=== PATIENT | male | born 1945 | race Caucasian/White ===

== ENCOUNTER 2021-04-23 14:47 | Emergency (ER) | payer OTHER ==
--- NOTE | 2021-04-23 17:29 | EDM.PDOC ---
ED HPI GENERAL MEDICAL PROBLEM - General Chief Complaint: Respiratory Problem Stated Complaint: cough / elbow injury Time Seen by Provider: 04/23/21 17:27 Source of Information: Reports: Patient History Limitations: Reports: No Limitations - History of Present Illness INITIAL COMMENTS - FREE TEXT/NARRATIVE: HISTORY AND PHYSICAL: History of present illness: Patient is a 76-year-old male who presents to the emergency room with complaints of productive cough and nasal drainage over the past few days. Patient states he has been diagnosed with COPD but does not take any medications for his lungs. For the past 1 month he has right elbow pain and right shoulder pain after hitting it on an end table. Patient denies any fever, chills, headache, change in vision, syncope or near syncope. Denies any chest pain, back pain, shortness of breath. Denies any abdominal pain, nausea, vomiting, diarrhea, constipation or dysuria. Has not noted any blood in urine or stool. Patient has been eating and drinking appropriately. Review of systems: As per history of present illness and below otherwise all systems reviewed and negative. Past medical history: As per history of present illness and as reviewed below otherwise noncontributory. Surgical history: As per history of present illness and as reviewed below otherwise noncontributory. Social history: See social history for further information Family history: As per history of present illness and as reviewed below otherwise noncontributory. Physical exam: General: Well developed and well nourished. Alert and orientated x 3. Nontoxic in appearance and in no acute distress. Vital signs are stable and have been reviewed by me. Nursing notes were reviewed. HEENT: Atraumatic, normocephalic, pupils equal and reactive bilaterally, negative for conjunctival pallor or scleral icterus, mucous membranes moist, TMs normal bilaterally, throat clear, neck supple, nontender, trachea midline. No drooling or trismus noted. No meningeal signs. No hot potato voice noted. Lungs: Clear to auscultation bilaterally. No wheezes, rales, or rhonchi. Chest nontender. Normal work of breathing, no accessory muscles used. Heart: S1S2, regular rate and rhythm without overt murmur, gallops, or rubs. No JVD. No peripheral edema Abdomen: Soft, nondistended, nontender. Skin: Intact, warm, dry. No lesions or rashes noted. Hematologic: No petechiae or purpra. Mucosa appropriate color and normal nail bed color and refill. Extremities: Bursitis noted to the right elbow, mild tenderness with touch. No redness, warmth or concern for infection of the elbow. He moves all extremities per self without difficulty or deficits. Pinpoint tenderness at the right anterior shoulder girdle. Negative for cords or calf pain. Neurovascular unremarkable. Neuro: Awake, alert, oriented. Cranial nerves II through XII unremarkable. Cerebellum unremarkable. Motor and sensory unremarkable throughout. Exam nonfocal. Psychiatric: Mood and affect are appropriate. Normal thought process. Answering questions appropriately. Please note that the patient was seen and evaluated during the 2019 SARS-CoV-2 novel coronavirus pandemic period. Community viral transmission is ongoing at time of this encounter and the emergency department is operating under pandemic response procedures. Medical Decision Making: X-ray shows soft tissue swelling over the olecranon. No acute fracture or subluxation. Normal x-ray of shoulder. Patient does have a leukocytosis with normal chest x-ray reading. Due to symptoms, history of COPD and being a smoker I will put him on antibiotics and steroids. He was given strict return precautions. I have talked with the patient about today's findings, in addition to providing specific details for plan of care. Reassessment at the time of disposition demonstrates that the patient is in no acute distress. The patient is stable for discharge, counseling was provided and we discussed in great detail signs and symptoms that would prompt them to return to the Emergency Department. Medication, follow up and supportive care measures were reviewed and discussed. Voices understanding and is agreeable to plan of care. Denies any further questions or concerns at this time. Diagnostics: CBC, CMP, chest x-ray, right elbow, right shoulder Therapeutics: Sling, azithromycin, prednisone, albuterol Prescription: azithromycin, prednisone, albuterol Impression: Olecranon bursitis, right Acute bronchitis Plan: 1. You were evaluated today on an emergent basis. Your elbow shows an olecranon bursitis (inflammation of the bursa cavity). Rest, ice and elevate. Avoid trauma and excessive pressure or repetitive movements. NSAIDS such as Ibuprofen, Aleve or Naproxen work best. Please take the antibiotic and steriod for your respiratory infection. Use the inhaler 2 puffs every 4 hours as needed. 2. You can alternate Tylenol and ibuprofen as needed for pain and fever management. 3. We encourage you to follow up with your primary care provider and orthopedics in the next few days for re-evaluation and further care/management. 4. If your symptoms should worsen, new symptoms develop or any of the signs and symptoms we discussed should arise please return to the emergency room or call 911 (if needed). Definitive disposition and diagnosis as appropriate pending reevaluation and review of above. right elbow Pain Score (Numeric/FACES): 6 - Related Data Allergies Allergy/AdvReac Type Severity Reaction Status Date / Time No Known Allergies Allergy Verified 04/23/21 14:59 Home Meds: Home Meds Azithromycin [Zithromax] 1 dose PO DAILY 5 Days #6 tab 04/23/21 [Rx] predniSONE [Prednisone] 40 mg PO DAILY 4 Days #8 tablet 04/23/21 [Rx] Past Medical History - Past Health History Medical/Surgical History: Denies Medical/Surgical History - Past Surgical History GI Surgical History: Reports: Cholecystectomy Social & Family History - Family History Family Medical History: No Pertinent Family History - Tobacco Use Tobacco Use Status *Q: Current Every Day Tobacco User Years of Tobacco use: 50 Packs/Tins Daily: 1 - Recreational Drug Use Recreational Drug Use: No ED ROS GENERAL - Review of Systems Review Of Systems: Comprehensive ROS is negative, except as noted in HPI. ED EXAM, GENERAL - Physical Exam Exam: See Below (See dictation) Course - Vital Signs Last Recorded V/S: Last Vital Signs Temp 98.0 F 04/23/21 19:57 Pulse 67 04/23/21 19:57 Resp 18 04/23/21 19:57 BP 103/75 04/23/21 19:57 Pulse Ox 94 L 04/23/21 19:57 - Orders/Labs/Meds Orders: Active Orders 24 hr Category Date Time Status DME for Discharge [COMM] Stat Oth 04/23/21 19:21 Ordered Labs: Laboratory Tests 04/23/21 04/23/21 04/23/21 Range/Units 17:35 17:36 17:36 WBC 17.41 H (4.0-11.0) K/uL RBC 3.97 L (4.50-5.90) M/uL Hgb 13.3 (13.0-17.0) g/dL Hct 40.0 (38.0-50.0) % MCV 100.8 H (80.0-98.0) fL MCH 33.5 H (27.0-32.0) pg MCHC 33.3 (31.0-37.0) g/dL RDW Std Deviation 52.1 (28.0-62.0) fl RDW Coeff of Fredo 14 (11.0-15.0) % Plt Count 216 (150-400) K/uL MPV 10.40 (7.40-12.00) fL Neut % (Auto) 76.1 (48.0-80.0) % Lymph % (Auto) 13.5 L (16.0-40.0) % [place] % (Auto) 9.9 (0.0-15.0) % Eos % (Auto) 0.3 (0.0-7.0) % Baso % (Auto) 0.2 (0.0-1.5) % Neut # (Auto) 13.3 H (1.4-5.7) K/uL Lymph # (Auto) 2.4 (0.6-2.4) K/uL [place] # (Auto) 1.7 H (0.0-0.8) K/uL Eos # (Auto) 0.1 (0.0-0.7) K/uL Baso # (Auto) 0.0 (0.0-0.1) K/uL Nucleated RBC % 0.0 /100WBC Nucleated RBCs # 0 K/uL Sodium 142 (136-148) mmol/L Potassium 4.0 (3.5-5.1) mmol/L Chloride 106 (98-107) mmol/L Carbon Dioxide 25.1 (21.0-32.0) mmol/L BUN 26 H (7.0-18.0) mg/dL Creatinine 1.4 H (0.8-1.3) mg/dL Est Cr Clr Drug Dosing 41.97 mL/min Estimated GFR (MDRD) 49.3 ml/min Glucose 117 H (74-106) mg/dL Calcium 8.5 (8.5-10.1) mg/dL Total Bilirubin 1.0 (0.2-1.0) mg/dL AST 17 (15-37) IU/L ALT 19 (14-63) IU/L Alkaline Phosphatase 85 (46-116) U/L Total Protein 7.0 (6.4-8.2) g/dL Albumin 3.2 L (3.4-5.0) g/dL Globulin 3.8 (2.6-4.0) g/dL Albumin/Globulin Ratio 0.8 L (0.9-1.6) SARS-CoV-2 RNA (CONNIE) NEGATIVE (NEGATIVE) Meds: Medications Discontinued Medications Generic Name Dose Route Start Last Admin Trade Name Janie PRN Reason Stop Dose Admin Albuterol Confirm 04/23/21 19:35 04/23/21 19:46 Albuterol 8 Gm Inhaler Administered 04/23/21 19:36 1 pkg Dose Administration 8 gm INH .STK-MED ONE Azithromycin 500 mg 04/23/21 19:22 04/23/21 19:46 Azithromycin 250 Mg Tab PO 04/23/21 19:23 500 mg NOW STA Administration Prednisone 40 mg 04/23/21 19:30 04/23/21 19:45 Prednisone 10 Mg Tab PO 40 mg .Daily Taper LAONDRA Administration Departure - Departure Time of Disposition: 21:57 Disposition: Home, Self-Care 01 Clinical Impression: Bronchitis, Olecranon bursitis of right elbow - Discharge Information Prescriptions: predniSONE [Prednisone] 40 mg PO DAILY 4 Days #8 tablet Azithromycin [Zithromax] 1 dose PO DAILY 5 Days #6 tab Instructions: Acute Bronchitis, Adult, [id number] Referrals: PCP,None [Primary Care Provider] - Forms: ED Department Discharge Additional Instructions: The following information is given to patients seen in the emergency department who are being discharged to home. This information is to outline your options for follow-up care. We provide all patients seen in our emergency department with a follow-up referral. The need for follow-up, as well as the timing and circumstances, are variable depending upon the specifics of your emergency department visit. If you don't have a primary care physician on staff, we will provide you with a referral. We always advise you to contact your personal physician following an emergency department visit to inform them of the circumstance of the visit and for follow-up with them and/or the need for any referrals to a consulting specialist. The emergency department will also refer you to a specialist when appropriate. This referral assures that you have the opportunity for follow-up care with a specialist. All of these measure are taken in an effort to provide you with optimal care, which includes your follow-up. Under all circumstances we always encourage you to contact your private physician who remains a resource for coordinating your care. When calling for follow-up care, please make the office aware that this follow-up is from your recent emergency room visit. If for any reason you are refused follow-up, please contact the [facility] Emergency Department at and asked to speak to the emergency department charge nurse. [facility] [address] [place] [id number] [address] Thank you for choosing the [facility] emergency department in [place] for your medical needs today. It was a pleasure caring for you. Today you were seen in the emergency department for cough elbow pain. 1. You were evaluated today on an emergent basis. Your elbow shows an olecranon bursitis (inflammation of the bursa cavity). Rest, ice and elevate. Avoid trauma and excessive pressure or repetitive movements. NSAIDS such as Ibuprofen, Aleve or Naproxen work best. Please take the antibiotic and steriod for your respiratory infection. Use the inhaler 2 puffs every 4 hours as needed. 2. You can alternate Tylenol and ibuprofen as needed for pain and fever manage ment. 3. We encourage you to follow up with your primary care provider and orthopedics in the next few days for re-evaluation and further care/management. 4. If your symptoms should worsen, new symptoms develop or any of the signs and symptoms we discussed should arise please return to the emergency room or call 911 (if needed). Sepsis Event Note (ED) - Evaluation Sepsis Screening Result: No Definite Risk - Focused Exam Vital Signs: Vital Signs Temp Pulse Resp BP Pulse Ox 04/23/21 19:57 98.0 F 67 18 103/75 94 L 04/23/21 18:46 98.1 F 60 16 126/62 94 L 04/23/21 17:25 69 137/62 97 04/23/21 14:54 97.3 F 66 20 134/73 96 - My Orders Last 24 Hours: My Active Orders 04/23/21 19:21 DME for Discharge [COMM] Stat - Assessment/Plan Last 24 Hours: My Active Orders 04/23/21 19:21 DME for Discharge [COMM] Stat
[2021-04-23 18:02] LABS: CARBON DIOXIDE,CO2 25.1 mmol/L (21.0-32.0)
--- NOTE | 2021-04-23 18:55 | CR ---
Indication: Cough Technique: Chest 1 view Comparison: None Findings/Impression: Normal cardiomediastinal silhouette. Calcified granuloma in the left upper lobe. Remainder of the lung edwards are clear. No effusion or pneumothorax. No acute osseous abnormality. Dictated by Ramona Burgess MD @ 04/23/2021 6:55:14 PM (Electronically Signed)
--- NOTE | 2021-04-23 18:57 | CR ---
Indication: Pain and swelling Technique: Three views right elbow Comparison: None Findings: Bones: Alignment is normal. No acute fractures or bone lesions. Well corticated osseous densities adjacent to the distal humerus may be from remote injury. Small enthesophyte on the olecranon. Joint spaces: Unremarkable. Soft tissues: Soft tissue swelling over the olecranon. Impression: Soft tissue swelling over the olecranon. No acute fracture or subluxation. Dictated by Ramona Burgess MD @ 04/23/2021 6:57:07 PM (Electronically Signed)
--- NOTE | 2021-04-23 19:00 | CR ---
Indication: Pain Technique: Three views right shoulder Comparison: None Findings: Bones: Alignment is normal. No fractures or bone lesions. Joint spaces: Unremarkable. Soft tissues: Unremarkable. Impression: Negative. Dictated by Ramona Burgess MD @ 04/23/2021 6:58:43 PM (Electronically Signed)
[2021-04-23] MEDS ORDERED: Azithromycin 250 MG Tab PO STA (19:22)
[2021-04-23] MEDS ORDERED: predniSONE 10 MG Tab PO SCH (19:30)
[2021-04-23] MEDS ORDERED: Albuterol 8 GM Inhaler INH ONE (19:35)
== END 2021-04-23 19:57 | disposition home or self-care (01) ==
LOC: MW.ED 14:47
DX: J20.9 Acute bronchitis, unspecified (principal); M70.21 Olecranon bursitis, right elbow; Z72.0 Tobacco use; Z20.822 Contact with and (suspected) exposure to COVID-19
CPT/HCPCS: 36415; 71045; 73030; 73080; 80053; 85025; 87635; 99283; A9270; U0002

== ENCOUNTER 2021-06-13 17:44 | Observation (INO) | payer OTHER ==
--- NOTE | 2021-06-13 19:49 | CR ---
INDICATION: Cough COMPARISON: Chest single view from 04/23/2021 FINDINGS: PA and lateral views of the chest were obtained. Again seen is a small calcified granuloma in the left lateral midlung. A shirt button is superimposed over the left lateral mid chest inferior to the tip of the scapula. The lungs otherwise remain clear. No focal or diffuse infiltrates are present. The heart remains normal in size. The mediastinum is normal in appearance. The osseous structures are normal in appearance for the patient`s age. IMPRESSION: No active disease seen in the chest. Dictated by Dwight Scanlon MD @ 06/13/2021 7:47:31 PM (Electronically Signed)
[2021-06-13 20:25] LABS: CORONAVIRUS COVID-19 NAA NEGATIVE (NEGATIVE); INFLUENZA A NAA NEGATIVE (NEGATIVE); INFLUENZA B NAA NEGATIVE (NEGATIVE)
[2021-06-13] MEDS ORDERED: Sodium Chloride 0.9% 2.5 ML Syringe FLUSH PRN (20:31)
--- NOTE | 2021-06-13 20:33 | EDM.PDOC ---
ED HPI GENERAL MEDICAL PROBLEM - General Chief Complaint: Respiratory Problem Stated Complaint: COUGH, CONGESTED Time Seen by Provider: 06/13/21 19:38 Source of Information: Reports: Patient History Limitations: Reports: No Limitations - History of Present Illness INITIAL COMMENTS - FREE TEXT/NARRATIVE: 76 yo M with history of COPD presents with dizziness, chest pain and cough. He started feeling dizzy and near syncopal 4 days ago, exacerbated with standing up and walking. 2 days ago he started developing left-sided dull pressure intermittent discomfort, each episode lasting about 15 minutes. He has had about 4-5 episodes since onset 2 days ago. He currently is chest pain-free. During his chest pain episodes he admits to palpitation and shortness of breath. He denies fever, chills, nausea, vomiting, diarrhea, radiating pain, abdominal pain. He also notes gradual onset progressive worsening frontal headache for 2 days, currently rated 3/10. He was vaccinated fully for Covid 3 months ago. He notes chronic productive cough with greenish sputum for months. ROS: A 10-point review of systems, other than pertinent positives and negatives as stated per HPI, is otherwise negative Past medical history: No additional pertinent history Past Surgical history: No additional pertinent history Social history: No additional pertinent history Family history: No additional pertinent history PHYSICAL EXAM General: AOx4, GCS = 15, No distress HEENT: dry mucous membrane Neck: supple, no meningismus, no Kernig or Brudzinski Cardiac: S1S2 RRR Respiratory: CTAB, no crackles or rales, no wheezing Abdomen: Soft, nontender, no rebound or guarding, nondistended, no pulsatile mass. Back: nontender Musculoskeletal: NVI distally, no deformity Neuro: No focal deficits, CN 2 - 12 WNL. - Related Data Allergies Allergy/AdvReac Type Severity Reaction Status Date / Time No Known Allergies Allergy Verified 06/13/21 18:55 Past Medical History - Past Health History Medical/Surgical History: Denies Medical/Surgical History - Infectious Disease History Infectious Disease History: Reports: Chicken Pox - Past Surgical History GI Surgical History: Reports: Cholecystectomy Social & Family History - Family History Family Medical History: No Pertinent Family History - Tobacco Use Tobacco Use Status *Q: Current Every Day Tobacco User Years of Tobacco use: 40 Packs/Tins Daily: 1 - Caffeine Use Caffeine Use: Reports: Coffee - Recreational Drug Use Recreational Drug Use: No ED ROS GENERAL - Review of Systems Review Of Systems: See Below (see dictation) ED EXAM, GENERAL - Physical Exam Exam: See Below (see dictation) #1 Interpretation EKG Interpretation Comments: Heart rate = 55 bpm, sinus bradycardia, normal QRS interval, no STEMI. EKG and rhythm strip interpreted by me at 2037 Course - Vital Signs Last Recorded V/S: Last Vital Signs Temp 98.9 F 06/13/21 18:56 Pulse 56 L 06/13/21 18:56 Resp 16 06/13/21 18:56 BP 121/59 L 06/13/21 18:56 Pulse Ox 97 06/13/21 18:56 - Orders/Labs/Meds Orders: Active Orders 24 hr Category Date Time Status Patient Status [ADT] Routine ADT 06/13/21 21:58 Ordered Cardiac Monitoring [RC] . DIRECTED Care 06/13/21 20:31 Active Pulse Oximetry [RC] ASDIRECTED Care 06/13/21 20:31 Active UA W/ANDREW RFLX IF INDICATED [URIN] Stat Lab 06/13/21 20:32 Ordered Sodium Chloride 0.9% [Saline Flush] Med 06/13/21 20:31 Active 10 ml FLUSH ASDIRECTED PRN Sodium Chloride 0.9% [Saline Flush] Med 06/13/21 20:31 Active 2.5 ml FLUSH ASDIRECTED PRN Saline Lock Insert [OM.PC] Routine Oth 06/13/21 20:31 Ordered Medication Orders Sodium Chloride (Sodium Chloride 0.9% 10 Ml Syringe) 10 ml FLUSH ASDIRECTED PRN PRN Reason: Keep Vein Open Last Admin: 06/13/21 21:25 Dose: 10 ml Documented by: Admin: 06/13/21 21:25 Dose: 10 ml Documented by: ANKUR Sodium Chloride (Sodium Chloride 0.9% 2.5 Ml Syringe) 2.5 ml FLUSH ASDIRECTED PRN PRN Reason: Keep Vein Open Last Admin: 06/13/21 21:26 Dose: 2.5 ml Documented by: ANKUR Labs: Laboratory Tests 06/13/21 06/13/21 06/13/21 Range/Units 19:40 20:46 20:46 WBC 9.80 (4.0-11.0) K/uL RBC 4.29 L (4.50-5.90) M/uL Hgb 14.5 (13.0-17.0) g/dL Hct 44.1 (38.0-50.0) % MCV 102.8 H (80.0-98.0) fL MCH 33.8 H (27.0-32.0) pg MCHC 32.9 (31.0-37.0) g/dL RDW Std Deviation 56.7 (28.0-62.0) fl RDW Coeff of Fredo 15 (11.0-15.0) % Plt Count 230 (150-400) K/uL MPV 10.50 (7.40-12.00) fL Neut % (Auto) 57.0 (48.0-80.0) % Lymph % (Auto) 34.7 (16.0-40.0) % [place] % (Auto) 7.4 (0.0-15.0) % Eos % (Auto) 0.7 (0.0-7.0) % Baso % (Auto) 0.2 (0.0-1.5) % Neut # (Auto) 5.6 (1.4-5.7) K/uL Lymph # (Auto) 3.4 H (0.6-2.4) K/uL [place] # (Auto) 0.7 (0.0-0.8) K/uL Eos # (Auto) 0.1 (0.0-0.7) K/uL Baso # (Auto) 0.0 (0.0-0.1) K/uL Nucleated RBC % 0.0 /100WBC Nucleated RBCs # 0 K/uL Sodium 141 (136-148) mmol/L Potassium 4.5 (3.5-5.1) mmol/L Chloride 107 (98-107) mmol/L Carbon Dioxide 26.7 (21.0-32.0) mmol/L BUN 18 (7.0-18.0) mg/dL Creatinine 0.9 (0.8-1.3) mg/dL Est Cr Clr Drug Dosing 63.01 mL/min Estimated GFR (MDRD) > 60.0 ml/min Glucose 93 (74-106) mg/dL Calcium 9.2 (8.5-10.1) mg/dL Magnesium 2.2 (1.8-2.4) mg/dL Total Bilirubin 0.6 (0.2-1.0) mg/dL AST 23 (15-37) IU/L ALT 25 (14-63) IU/L Alkaline Phosphatase 80 (46-116) U/L Troponin I < 0.050 (0.000-0.056) ng/mL B-Natriuretic Peptide (<100) PG/ML Total Protein 7.2 (6.4-8.2) g/dL Albumin 3.6 (3.4-5.0) g/dL Globulin 3.6 (2.6-4.0) g/dL Albumin/Globulin Ratio 1.0 (0.9-1.6) Influenza Type A RNA NEGATIVE (NEGATIVE) Influenza Type B RNA NEGATIVE (NEGATIVE) SARS-CoV-2 RNA (CONNIE) NEGATIVE (NEGATIVE) 06/13/21 Range/Units 20:46 WBC (4.0-11.0) K/uL RBC (4.50-5.90) M/uL Hgb (13.0-17.0) g/dL Hct (38.0-50.0) % MCV (80.0-98.0) fL MCH (27.0-32.0) pg MCHC (31.0-37.0) g/dL RDW Std Deviation (28.0-62.0) fl RDW Coeff of Fredo (11.0-15.0) % Plt Count (150-400) K/uL MPV (7.40-12.00) fL Neut % (Auto) (48.0-80.0) % Lymph % (Auto) (16.0-40.0) % [place] % (Auto) (0.0-15.0) % Eos % (Auto) (0.0-7.0) % Baso % (Auto) (0.0-1.5) % Neut # (Auto) (1.4-5.7) K/uL Lymph # (Auto) (0.6-2.4) K/uL [place] # (Auto) (0.0-0.8) K/uL Eos # (Auto) (0.0-0.7) K/uL Baso # (Auto) (0.0-0.1) K/uL Nucleated RBC % /100WBC Nucleated RBCs # K/uL Sodium (136-148) mmol/L Potassium (3.5-5.1) mmol/L Chloride (98-107) mmol/L Carbon Dioxide (21.0-32.0) mmol/L BUN (7.0-18.0) mg/dL Creatinine (0.8-1.3) mg/dL Est Cr Clr Drug Dosing mL/min Estimated GFR (MDRD) ml/min Glucose (74-106) mg/dL Calcium (8.5-10.1) mg/dL Magnesium (1.8-2.4) mg/dL Total Bilirubin (0.2-1.0) mg/dL AST (15-37) IU/L ALT (14-63) IU/L Alkaline Phosphatase (46-116) U/L Troponin I (0.000-0.056) ng/mL B-Natriuretic Peptide 83 (<100) PG/ML Total Protein (6.4-8.2) g/dL Albumin (3.4-5.0) g/dL Globulin (2.6-4.0) g/dL Albumin/Globulin Ratio (0.9-1.6) Influenza Type A RNA (NEGATIVE) Influenza Type B RNA (NEGATIVE) SARS-CoV-2 RNA (CONNIE) (NEGATIVE) Meds: Medications Generic Name Dose Route Start Last Admin Trade Name Freq PRN Reason Stop Dose Admin Sodium Chloride 10 ml 06/13/21 20:31 06/13/21 21:25 Sodium Chloride 0.9% 10 Ml Syringe FLUSH 10 ml ASDIRECTED PRN Administration Keep Vein Open Sodium Chloride 2.5 ml 06/13/21 20:31 06/13/21 21:26 Sodium Chloride 0.9% 2.5 Ml Syringe FLUSH 2.5 ml ASDIRECTED PRN Administration Keep Vein Open - Re-Assessments/Exams Free Text/Narrative Re-Assessment/Exam: 06/13/21 21:55 Patient has a heart score = 5, will admit for further assessment. Case discussed with Dr. Bedoya, who agrees to admit patient. The hospitalist's documen ruddy supersedes all other documentation on this patient with regard to any conflicts or discrepancies from this point forward. Any emergency conditions have been treated to the ability of the ED prior to admission. Departure - Departure Time of Disposition: 21:55 Disposition: Refer to Observation Condition: Good Clinical Impression: Near syncope, Chest pain, COPD (chronic obstructive pulmonary disease), Unstable angina - Discharge Information *PRESCRIPTION DRUG MONITORING PROGRAM REVIEWED*: Not Applicable *COPY OF PRESCRIPTION DRUG MONITORING REPORT IN PATIENT TING: Not Applicable Referrals: PCP,Not In Area [Primary Care Provider] - Forms: ED Department Discharge Sepsis Event Note (ED) - Evaluation Sepsis Screening Result: No Definite Risk - Focused Exam Vital Signs: Vital Signs Temp Pulse Resp BP Pulse Ox 06/13/21 18:56 98.9 F 56 L 16 121/59 L 97 - My Orders Last 24 Hours: My Active Orders 06/13/21 20:31 Cardiac Monitoring [RC] . DIRECTED Pulse Oximetry [RC] ASDIRECTED Sodium Chloride 0.9% [Saline Flush] 10 ml FLUSH ASDIRECTED PRN Sodium Chloride 0.9% [Saline Flush] 2.5 ml FLUSH ASDIRECTED PRN Saline Lock Insert [OM.PC] Routine 06/13/21 20:32 UA W/ANDREW RFLX IF INDICATED [URIN] Stat 06/13/21 21:58 Patient Status [ADT] Routine - Assessment/Plan Last 24 Hours: My Active Orders 06/13/21 20:31 Cardiac Monitoring [RC] . DIRECTED Pulse Oximetry [RC] ASDIRECTED Sodium Chloride 0.9% [Saline Flush] 10 ml FLUSH ASDIRECTED PRN Sodium Chloride 0.9% [Saline Flush] 2.5 ml FLUSH ASDIRECTED PRN Saline Lock Insert [OM.PC] Routine 06/13/21 20:32 UA W/ANDREW RFLX IF INDICATED [URIN] Stat 06/13/21 21:58 Patient Status [ADT] Routine
--- NOTE | 2021-06-13 21:16 | CT ---
INDICATION: Headache TECHNIQUE: CT Head without i.v. contrast. Coronal and sagittal reformats were obtained. COMPARISON: None FINDINGS: CSF space: Unremarkable for age. Brain: No evidence of mass, acute infarction or hemorrhage is seen. No mass-effect or midline shift is seen. Mild diffuse cortical atrophy is noted. The brain parenchyma is otherwise normal in appearance with preservation of the echols-white matter junction. Calvarium: The visualized paranasal sinuses are well aerated. The mastoid air cells are clear. Remote appearing blowout deformity of the right lamina papyracea is seen. The calvarium is unremarkable in appearance with no fractures identified. IMPRESSION: 1. No evidence of acute infarction, intracranial hemorrhage, or mass-effect seen. Dictated by Nehemias Lee MD @ 06/13/2021 9:14:05 PM Please note that all CT scans at this facility use dose modulation, iterative reconstruction, and/or weight-based dosing when appropriate to reduce radiation dose to as low as reasonably achievable. Dictated by: Nehemias Lee MD @ 06/13/2021 21:14:09 (Electronically Signed)
[2021-06-13] MEDS: Sodium Chloride 0.9% 10 ML Syringe FLUSH PRN (21:25)
[2021-06-13 21:28] LABS: BLOOD UREA NITROGEN,BUN 18 mg/dL (7.0-18.0); CARBON DIOXIDE,CO2 26.7 mmol/L (21.0-32.0); CHLORIDE,CL 107 mmol/L (98-107); GLUCOSE RANDOM 93 mg/dL (74-106); POTASSIUM,K 4.5 mmol/L (3.5-5.1); SODIUM,NA 141 mmol/L (136-148)
[2021-06-14] MEDS ORDERED: Sodium Chloride 0.65% Nasal Spray 45 ML Bottle NASBOTH PRN (00:25)
[2021-06-14] MEDS ORDERED: Levofloxacin 500 MG Tab PO SCH ×2 (01:00)
--- NOTE | 2021-06-14 09:49 | PCM.HP.2 ---
H&P History of Present Illness - General Date of Service: 06/14/21 Admit Problem/Dx: Admission Diagnosis/Problem Admission Diagnosis/Problem Near syncope - History of Present Illness Initial Comments - Free Text/Narative: 76 yo male who presents to the ED with complaint of cough and chest congestion. The past two days he reports headache as well as a chest burning sensation. He also reports dizziness but has not lost consciousness. He denies any fevers, chills or shortness of breath. - Related Data Allergies/Adverse Reactions: Allergies Allergy/AdvReac Type Severity Reaction Status Date / Time No Known Allergies Allergy Verified 06/14/21 03:36 Home Medications: Home Meds levoFLOXacin [Levaquin] 500 mg PO Q24H #5 tablet 06/14/21 [Rx] predniSONE [Prednisone] 20 mg PO DAILY #5 tablet 06/14/21 [Rx] Past Medical History - Past Health History Medical/Surgical History: Denies Medical/Surgical History HEENT History: Reports: Impaired Vision Respiratory History: Reports: COPD - Infectious Disease History Infectious Disease History: Reports: Chicken Pox - Past Surgical History HEENT Surgical History: Reports: None GI Surgical History: Reports: Cholecystectomy Social & Family History - Family History Family Medical History: No Pertinent Family History - Tobacco Use Tobacco Use Status *Q: Current Every Day Tobacco User Years of Tobacco use: 60 Packs/Tins Daily: 1 - Caffeine Use Caffeine Use: Reports: Coffee, Energy Drinks, Soda - Recreational Drug Use Recreational Drug Use: No H&P Review of Systems - Review of Systems: Review Of Systems: Comprehensive ROS is negative, except as noted in HPI. Exam - Exam Exam: See Below - Vital Signs Vital Signs: Last Vital Signs Temp 35.6 C L 06/14/21 08:00 Pulse 50 L 06/14/21 08:00 Resp 20 06/14/21 08:00 BP 123/69 06/14/21 08:00 Pulse Ox 96 06/14/21 08:00 Weight: 67.132 kg - Exam General: Alert, Oriented HEENT: Mucosa Moist & [place] Neck: Supple Lungs: Clear to Auscultation, Normal Respiratory Effort Cardiovascular: Regular Rate, Regular Rhythm GI/Abdominal Exam: Normal Bowel Sounds, Soft, Non-Tender Extremities: Non-Tender, No Pedal Edema Skin: Warm, Dry, Intact Neurological: No: Focal Deficit - Patient Data Lab Results Last 24 hrs: Laboratory Results - last 24 hr 06/13/21 06/13/21 06/13/21 Range/Units 19:40 20:46 20:46 WBC 9.80 (4.0-11.0) K/uL RBC 4.29 L (4.50-5.90) M/uL Hgb 14.5 (13.0-17.0) g/dL Hct 44.1 (38.0-50.0) % MCV 102.8 H (80.0-98.0) fL MCH 33.8 H (27.0-32.0) pg MCHC 32.9 (31.0-37.0) g/dL RDW Std Deviation 56.7 (28.0-62.0) fl RDW Coeff of Fredo 15 (11.0-15.0) % Plt Count 230 (150-400) K/uL MPV 10.50 (7.40-12.00) fL Neut % (Auto) 57.0 (48.0-80.0) % Lymph % (Auto) 34.7 (16.0-40.0) % [place] % (Auto) 7.4 (0.0-15.0) % Eos % (Auto) 0.7 (0.0-7.0) % Baso % (Auto) 0.2 (0.0-1.5) % Neut # (Auto) 5.6 (1.4-5.7) K/uL Lymph # (Auto) 3.4 H (0.6-2.4) K/uL [place] # (Auto) 0.7 (0.0-0.8) K/uL Eos # (Auto) 0.1 (0.0-0.7) K/uL Baso # (Auto) 0.0 (0.0-0.1) K/uL Nucleated RBC % 0.0 /100WBC Nucleated RBCs # 0 K/uL Sodium 141 (136-148) mmol/L Potassium 4.5 (3.5-5.1) mmol/L Chloride 107 (98-107) mmol/L Carbon Dioxide 26.7 (21.0-32.0) mmol/L BUN 18 (7.0-18.0) mg/dL Creatinine 0.9 (0.8-1.3) mg/dL Est Cr Clr Drug Dosing 63.01 mL/min Estimated GFR (MDRD) > 60.0 ml/min Glucose 93 (74-106) mg/dL Calcium 9.2 (8.5-10.1) mg/dL Magnesium 2.2 (1.8-2.4) mg/dL Total Bilirubin 0.6 (0.2-1.0) mg/dL AST 23 (15-37) IU/L ALT 25 (14-63) IU/L Alkaline Phosphatase 80 (46-116) U/L Troponin I < 0.050 (0.000-0.056) ng/mL B-Natriuretic Peptide (<100) PG/ML Total Protein 7.2 (6.4-8.2) g/dL Albumin 3.6 (3.4-5.0) g/dL Globulin 3.6 (2.6-4.0) g/dL Albumin/Globulin Ratio 1.0 (0.9-1.6) Urine Color Urine Appearance Urine pH (5.0-8.0) Ur Specific [place] (1.001-1.035) Urine Protein (NEGATIVE) mg/dL Urine Glucose (UA) (NEGATIVE) mg/dL Urine Ketones (NEGATIVE) mg/dL Urine Occult Blood (NEGATIVE) Urine Nitrite (NEGATIVE) Urine Bilirubin (NEGATIVE) Urine Urobilinogen (<2.0) EU/dL Ur Leukocyte Esterase (NEGATIVE) Influenza Type A RNA NEGATIVE (NEGATIVE) Influenza Type B RNA NEGATIVE (NEGATIVE) SARS-CoV-2 RNA (CONNIE) NEGATIVE (NEGATIVE) 06/13/21 06/14/21 06/14/21 Range/Units 20:46 02:05 07:38 WBC (4.0-11.0) K/uL RBC (4.50-5.90) M/uL Hgb (13.0-17.0) g/dL Hct (38.0-50.0) % MCV (80.0-98.0) fL MCH (27.0-32.0) pg MCHC (31.0-37.0) g/dL RDW Std Deviation (28.0-62.0) fl RDW Coeff of Fredo (11.0-15.0) % Plt Count (150-400) K/uL MPV (7.40-12.00) fL Neut % (Auto) (48.0-80.0) % Lymph % (Auto) (16.0-40.0) % [place] % (Auto) (0.0-15.0) % Eos % (Auto) (0.0-7.0) % Baso % (Auto) (0.0-1.5) % Neut # (Auto) (1.4-5.7) K/uL Lymph # (Auto) (0.6-2.4) K/uL [place] # (Auto) (0.0-0.8) K/uL Eos # (Auto) (0.0-0.7) K/uL Baso # (Auto) (0.0-0.1) K/uL Nucleated RBC % /100WBC Nucleated RBCs # K/uL Sodium (136-148) mmol/L Potassium (3.5-5.1) mmol/L Chloride (98-107) mmol/L Carbon Dioxide (21.0-32.0) mmol/L BUN (7.0-18.0) mg/dL Creatinine (0.8-1.3) mg/dL Est Cr Clr Drug Dosing mL/min Estimated GFR (MDRD) ml/min Glucose (74-106) mg/dL Calcium (8.5-10.1) mg/dL Magnesium (1.8-2.4) mg/dL Total Bilirubin (0.2-1.0) mg/dL AST (15-37) IU/L ALT (14-63) IU/L Alkaline Phosphatase (46-116) U/L Troponin I < 0.050 (0.000-0.056) ng/mL B-Natriuretic Peptide 83 (<100) PG/ML Total Protein (6.4-8.2) g/dL Albumin (3.4-5.0) g/dL Globulin (2.6-4.0) g/dL Albumin/Globulin Ratio (0.9-1.6) Urine Color YELLOW Urine Appearance CLEAR Urine pH 6.0 (5.0-8.0) Ur Specific [place] >= 1.030 (1.001-1.035) Urine Protein NEGATIVE (NEGATIVE) mg/dL Urine Glucose (UA) NEGATIVE (NEGATIVE) mg/dL Urine Ketones NEGATIVE (NEGATIVE) mg/dL Urine Occult Blood NEGATIVE (NEGATIVE) Urine Nitrite NEGATIVE (NEGATIVE) Urine Bilirubin NEGATIVE (NEGATIVE) Urine Urobilinogen 0.2 (<2.0) EU/dL Ur Leukocyte Esterase NEGATIVE (NEGATIVE) Influenza Type A RNA (NEGATIVE) Influenza Type B RNA (NEGATIVE) SARS-CoV-2 RNA (CONNIE) (NEGATIVE) 06/14/21 Range/Units 08:10 WBC (4.0-11.0) K/uL RBC (4.50-5.90) M/uL Hgb (13.0-17.0) g/dL Hct (38.0-50.0) % MCV (80.0-98.0) fL MCH (27.0-32.0) pg MCHC (31.0-37.0) g/dL RDW Std Deviation (28.0-62.0) fl RDW Coeff of Fredo (11.0-15.0) % Plt Count (150-400) K/uL MPV (7.40-12.00) fL Neut % (Auto) (48.0-80.0) % Lymph % (Auto) (16.0-40.0) % [place] % (Auto) (0.0-15.0) % Eos % (Auto) (0.0-7.0) % Baso % (Auto) (0.0-1.5) % Neut # (Auto) (1.4-5.7) K/uL Lymph # (Auto) (0.6-2.4) K/uL [place] # (Auto) (0.0-0.8) K/uL Eos # (Auto) (0.0-0.7) K/uL Baso # (Auto) (0.0-0.1) K/uL Nucleated RBC % /100WBC Nucleated RBCs # K/uL Sodium (136-148) mmol/L Potassium (3.5-5.1) mmol/L Chloride (98-107) mmol/L Carbon Dioxide (21.0-32.0) mmol/L BUN (7.0-18.0) mg/dL Creatinine (0.8-1.3) mg/dL Est Cr Clr Drug Dosing mL/min Estimated GFR (MDRD) ml/min Glucose (74-106) mg/dL Calcium (8.5-10.1) mg/dL Magnesium (1.8-2.4) mg/dL Total Bilirubin (0.2-1.0) mg/dL AST (15-37) IU/L ALT (14-63) IU/L Alkaline Phosphatase (46-116) U/L Troponin I < 0.050 (0.000-0.056) ng/mL B-Natriuretic Peptide (<100) PG/ML Total Protein (6.4-8.2) g/dL Albumin (3.4-5.0) g/dL Globulin (2.6-4.0) g/dL Albumin/Globulin Ratio (0.9-1.6) Urine Color Urine Appearance Urine pH (5.0-8.0) Ur Specific [place] (1.001-1.035) Urine Protein (NEGATIVE) mg/dL Urine Glucose (UA) (NEGATIVE) mg/dL Urine Ketones (NEGATIVE) mg/dL Urine Occult Blood (NEGATIVE) Urine Nitrite (NEGATIVE) Urine Bilirubin (NEGATIVE) Urine Urobilinogen (<2.0) EU/dL Ur Leukocyte Esterase (NEGATIVE) Influenza Type A RNA (NEGATIVE) Influenza Type B RNA (NEGATIVE) SARS-CoV-2 RNA (CONNIE) (NEGATIVE) Result Diagrams: 06/13/21 20:46 06/13/21 20:46 Sepsis Event Note - Evaluation Sepsis Screening Result: No Definite Risk - Focused Exam Vital Signs: Vital Signs Temp Pulse Pulse Resp BP Pulse Ox 06/14/21 08:00 35.6 C L 50 L 20 123/69 96 06/14/21 04:00 36.0 C L 58 L 16 124/58 L 96 06/14/21 00:52 36.0 C L 72 16 128/59 L 95 06/14/21 00:50 95 06/13/21 23:03 57 L 131/50 L 98 Problem List Initiated/Reviewed/Updated: Yes Orders Last 24hrs: Active Orders 24 hr Category Date Time Status Patient Status [ADT] Routine ADT 06/13/21 21:58 Active Cardiac Monitoring [RC] . DIRECTED Care 06/13/21 20:31 Active Pulse Oximetry [RC] ASDIRECTED Care 06/13/21 20:31 Active Telemetry Monitoring [Cardiac Monitoring] [RC] Q8H Care 06/14/21 00:00 Active Vaccine to be Administered/Admin Charge [RC] ASDIRECTED Care 06/14/21 09:00 Active Regular Diet [DIET] Diet 06/14/21 Breakfast Active Sodium Chloride 0.65% [[place] Nasal [place]] Med 06/14/21 00:25 Active See Dose Instructions NASBOTH Q6H PRN Sodium Chloride 0.9% [Saline Flush] Med 06/13/21 20:31 Active 10 ml FLUSH ASDIRECTED PRN Sodium Chloride 0.9% [Saline Flush] Med 06/13/21 20:31 Active 2.5 ml FLUSH ASDIRECTED PRN levoFLOXacin [Levaquin] Med 06/14/21 01:00 Active 500 mg PO Q24H Saline Lock Insert [OM.PC] Routine Oth 06/13/21 20:31 Ordered Medication Orders Levofloxacin (Levofloxacin 500 Mg Tab) 500 mg PO Q24H ALONDRA Last Admin: 06/14/21 01:28 Dose: 500 mg Documented by: CARLOS EDUARDO Sodium Chloride (Sodium Chloride 0.9% 10 Ml Syringe) 10 ml FLUSH ASDIRECTED PRN PRN Reason: Keep Vein Open Last Admin: 06/13/21 21:25 Dose: 10 ml Documented by: Admin: 06/13/21 21:25 Dose: 10 ml Documented by: ANKUR Sodium Chloride (Sodium Chloride 0.9% 2.5 Ml Syringe) 2.5 ml FLUSH ASDIRECTED PRN PRN Reason: Keep Vein Open Last Admin: 06/13/21 21:26 Dose: 2.5 ml Documented by: ELAINAILAC Sodium Chloride (Sodium Chloride 0.65% Nasal [place] 45 Ml Bottle) 0 ml NASBOTH Q6H PRN PRN Reason: nasal congestion Last Admin: 06/14/21 01:38 Dose: 1 spray Documented by: CARLOS EDUARDO Assessment/Plan Comment:: 76 yo male admitted overnight due to chest pain. He ruled out for acute coronary syndrome with serial negative cardiac enzymes and EKG. It does sound like he has acute bronchitis. He reports he has had adverse reactions to inhalers in the past and says he has had good response to prednisone in the past. Patient was discharged home on Levaquin and prednisone. He is to follow up with his primary care provider
== END 2021-06-14 15:45 | disposition home or self-care (01) ==
LOC: MW.ED 17:44 → MW.MS 21:58 → UNDOADMOB 21:58
PROVIDERS: ADMIT Internal Medicine; ATTEND Internal Medicine
DX: R07.9 Chest pain, unspecified (principal); R05.9 Cough, unspecified; R09.89 Other specified symptoms and signs involving the circulatory and respiratory systems; J44.9 Chronic obstructive pulmonary disease, unspecified; F17.210 Nicotine dependence, cigarettes, uncomplicated; Z79.899 Other long term (current) drug therapy; Z20.822 Contact with and (suspected) exposure to COVID-19
CPT/HCPCS: 0240U; 36415; 70450; 71046; 80053; 81003; 83735; 83880; 84484; 85025; 90471; 90662; 93005; 99285; A9270; G0378; G0008